=== PATIENT | female | born 1965 | race Caucasian/White ===

== ENCOUNTER 2017-03-24 11:26 | Emergency (ER) | payer MEDICARE ==
[~2017-03-24] VITALS: Ht 170.1 cm; Wt 90.7 kg
[2017-03-24 12:03] VITALS: BP 190/110
== END 2017-03-24 14:40 | disposition home or self-care (01) ==
LOC: ED 11:26
DX: S13.4XXA Sprain of ligaments of cervical spine, initial encounter (principal); S00.83XA Contusion of other part of head, initial encounter; R03.0 Elevated blood-pressure reading, without diagnosis of hypertension; Z88.8 Allergy status to other drugs, medicaments and biological substances; Z91.040 Latex allergy status; W18.39XA Other fall on same level, initial encounter; Y93.01 Activity, walking, marching and hiking; Y92.89 Other specified places as the place of occurrence of the external cause; Y99.8 Other external cause status

== ENCOUNTER 2017-09-06 16:20 | Emergency (ER) | payer MEDICARE, OTHER ==
[~2017-09-06] VITALS: Ht 170.1 cm; Wt 99.8 kg
[2017-09-06 16:23] VITALS: BP 129/74
[2017-09-06] MEDS ORDERED: CLINDAMYCIN HC300 MG PO (16:40)
== END 2017-09-06 16:47 | disposition home or self-care (01) ==
LOC: ED 16:20
DX: S02.5XXA Fracture of tooth (traumatic), initial encounter for closed fracture (principal); E11.9 Type 2 diabetes mellitus without complications; Z91.041 Radiographic dye allergy status; Z88.8 Allergy status to other drugs, medicaments and biological substances; Z88.1 Allergy status to other antibiotic agents; X58.XXXA Exposure to other specified factors, initial encounter; Y93.89 Activity, other specified; Y92.89 Other specified places as the place of occurrence of the external cause; Y99.8 Other external cause status

== ENCOUNTER 2018-06-02 15:05 | Emergency (ER) | payer MEDICARE, OTHER ==
[~2018-06-02] VITALS: Ht 172.7 cm; Wt 90.7 kg
[~2018-06-02 15:05] MED LIST: CLINDAMYCIN HC300 MG PO
[2018-06-02] MEDS ORDERED: NAPROSYN500 MG PO (15:20)
[2018-06-02] MEDS ORDERED: CHLORZOXAZONE500 M2 PO (15:20)
[2018-06-02 17:30] VITALS: BP 148/68
== END 2018-06-02 17:13 | disposition home or self-care (01) ==
LOC: ED 15:05
DX: S13.9XXA Sprain of joints and ligaments of unspecified parts of neck, initial encounter (principal); T14.8XXA Other injury of unspecified body region, initial encounter; R03.0 Elevated blood-pressure reading, without diagnosis of hypertension; M25.511 Pain in right shoulder; M25.521 Pain in right elbow; R51 Headache; M25.551 Pain in right hip; M25.561 Pain in right knee; Z90.49 Acquired absence of other specified parts of digestive tract; Z91.041 Radiographic dye allergy status; Z88.8 Allergy status to other drugs, medicaments and biological substances; Z88.1 Allergy status to other antibiotic agents; Z79.2 Long term (current) use of antibiotics; W01.0XXA Fall on same level from slipping, tripping and stumbling without subsequent striking against object, initial encounter; Y93.89 Activity, other specified; Y92.89 Other specified places as the place of occurrence of the external cause; Y99.8 Other external cause status

== ENCOUNTER 2021-04-08 14:55 | Emergency (ER) | payer MEDICARE, OTHER ==
[~2021-04-08] VITALS: Wt 90.7 kg
[~2021-04-08 14:55] MED LIST changes: +CHLORZOXAZONE500 M2 PO; +NAPROSYN500 MG PO
[2021-04-08 14:56] VITALS: BP 147/94
[2021-04-08 16:11] LABS: ALBUMIN 2.5 gm/dl (3.1-4.5); ALKALINE PHOSPHATASE 77 U/L (45-117); BUN 31 mg/dl (7-24); CHLORIDE 96 mmol/L (98-107); CREATININE 0.85 mg/dL (0.55-1.02); POTASSIUM 3.9 mmol/L (3.5-5.1); SGOT/AST 223 IU/L (3-35); SGPT/ALT 154 U/L (12-78); SODIUM 131 mmol/L (136-145); TOTAL PROTEIN 6.9 gm/dL (6.4-8.2)
[2021-04-08 16:19] LABS: HEMATOCRIT 45.2 % (37.0-47.0); MEAN CELL VOLUME 88.6 fl (81.0-99.0); MEAN CORPUSCULAR HGB 29.2 pg (27.0-31.0); MEAN PLATELET VOLUME 11.3 fl (9.6-12.3); PLATELET COUNT AUTOMATED 191 10*3/uL (130-400); RED CELL DISTRI WIDTH 12.7 % (0-14.5); WHITE BLOOD COUNT 8.4 10*3/uL (4.8-10.8)
[2021-04-08 16:39] LABS: ATYPICAL LYMPHS 4 % (0-0); PLATELET SUFFICIENCY NORMAL (NORMAL); TOTAL CELLS COUNTED 100 #CELLS
[2021-04-08 16:40] LABS: BURR CELLS FEW
== END 2021-04-08 19:07 | disposition home or self-care (01) ==
LOC: ED 14:55
PROVIDERS: Physician Assistant
DX: U07.1 COVID-19 (principal); J12.82 Pneumonia due to coronavirus disease 2019; Z91.041 Radiographic dye allergy status; Z88.1 Allergy status to other antibiotic agents; Z88.8 Allergy status to other drugs, medicaments and biological substances

== ENCOUNTER 2022-09-12 13:29 | Emergency (ER) | payer MEDICARE, OTHER ==
[~2022-09-12] VITALS: Ht 170.2 cm; Wt 2.9 kg
== END 2022-09-12 16:25 ==
LOC: ED 13:29
DX: I46.9 Cardiac arrest, cause unspecified (principal); I47.20 Ventricular tachycardia, unspecified; I44.2 Atrioventricular block, complete